=== PATIENT | male | born 1965 | race Caucasian/White ===

== ENCOUNTER → 2021-09-23 16:30 | Outpatient (CLI) | payer BC, SELFPAY ==
--- NOTE | ~2021-09-23 | XR_ITS ---
XR foot LT min 3V DATE: 09/23/2021 16:44 INDICATION: Left foot pain TECHNIQUE: 4 views COMPARISON: None FINDINGS: There is a recent intra-articular fracture of the base and metaphysis of the proximal phala nx of the second digit, with minimal displacement or angulation. No other fracture or dislocation, periosteal reaction or bone destruction is evident. Prominent plantar calcaneal enthesopathy. IMPRESSION: Intra-articular minimally displaced fracture of the base and metaphysis of the proximal p halanx of the second digit Plantar calcaneal enthesopathy Reviewed, dictated and finalized at location J. [facility] CARE MANAGER IMPRESSION: Intra-articular minimally displaced fracture of the base and metaph ysis of the proximal phalanx of the second digit Plantar calcaneal enthesopathy
== END ==
PROVIDERS: PCP Family Medicine; Visit Provider Family Medicine
DX: M77.32 Calcaneal spur, left foot (principal); S92.512A Displaced fracture of proximal phalanx of left lesser toe(s), initial encounter for closed fracture
CPT/HCPCS: 73630

== ENCOUNTER 2025-06-24 14:13 | Emergency (ER) | payer BC, SELFPAY ==
--- NOTE | ~2025-06-24 | CT_ITS ---
CT abdomen pelvis w con INDICATION:right flank pain, abd pain . COMPARISON: None. TECHNIQUE: Axial images of the abdomen and pelvis were obtained following infusion of 100 mL Isovue 300. Dose optimization technique was utilized. FINDINGS: The lung bases are clear. Fatty infiltration of the liver is noted. No intrahepatic mass or ductal dilatation is evident. The gallbladder is unremarkable. The pancreas and spleen are normal in appearance. The adrenal glands are symmetric in size. The kidneys demonstrate symmetric uptake and excretion of contrast. No cystic mass is evident. There is no solid mass. There is no hydronephrosis. Evaluation of the stomach and bowel loops are limited due to lack of oral contrast. The appendix is normal in appearance. Fat-containing left paramedian hernia. The bladder and rectum are normal. No free intraperitoneal fluid or air is evident. There is no significant retroperitoneal lymphadenopathy. The aorta, visceral vessels and renal arteries demonstrate normal caliber and patency. The lower thoracic and lumbar vertebrae are in normal alignment. IMPRESSION: No acute abnormality is noted in the abdomen and pelvis. Fat-containing left paramedian ventral wall hernia. All CT scans at this facility are performed using low dose modulation techniques as appropriate to perform exam including the following: automated exposure control; use of iterative reconstruction technique; adjustment of the mA and/or kV according to patient size (this includes techniques or standardized protocols for targeted exams where dose is matched to indication/reason for exam). Reviewed, dictated and finalized at location S. IMPRESSION: No acute abnormality is noted in the abdomen and pelvis. Fat-containing left paramedian ventral wall hernia. All CT scans at this facility are performed using low dose modulation techniqu es as appropriate to perform exam including the following: automated exposure c ontrol; use of iterative reconstruction technique; adjustment of the mA and/or kV according to patient size (this includes techniques or standardized protocol s for targeted exams where dose is matched to indication/reason for exam).
[2025-06-24 14:21] VITALS: BP 151/78; PULSE 82; RESP 20; TEMP 36.4; O2SAT 98
[2025-06-24 16:10] VITALS: BP 175/102; PULSE 72; RESP 18; O2SAT 98
[2025-06-24 17:03] LABS: Hematocrit 45.6 % (42.0-52.0); Hemoglobin 15.0 g/dL (14.0-18.0); Immature Granulocyte Percent A 0.7 % (0-0.5); Lymphocytes Absolute Auto 1.61 K/mm3 (0.9-3.2); Mean Corpuscular HGB Conc 32.9 g/dl (32-36); Mean Corpuscular Hemoglobin 29.2 pg (26-34); Mean Corpuscular Volume 88.9 fl (80-100); Nucleated Red Blood Cells Absolute Auto 0.000 K/mm3 (0.0-0.012); Nucleated Red Blood Cells Perc 0.0 % (0.0-0.2); Platelet Count Result 246 k/mm3 (150-375); Red Blood Count 5.13 M/mm3 (4.6-6.20); White Blood Count 5.3 K/mm3 (4.5-10.0)
[2025-06-24 17:05] LABS: Add Urine Microscopic? NO; Appearance Urine Clear (Clear); Glucose Urine UA 3+ mg/dL (Negative); Leukocyte Esterase Ur Negative LEU/UL (Negative); Nitrate Urine Negative (Negative); Specific Grav Ur 1.037 (1.001-1.035)
[2025-06-24 17:15] VITALS: BP 142/98; PULSE 77; RESP 18; O2SAT 98
[2025-06-24] MEDS: ONDANSETRON INJ 4 MG/2 ML VIAL IV PUSH (17:18)
[2025-06-24] MEDS: MORPHINE SULFATE (*CRX) 4 MG/ML INJ IV PUSH (17:18)
[2025-06-24 17:22] LABS: Alanine Aminotransferase 48 U/L (6-50); Albumin Level 4.0 g/dL (3.5-5.1); Alkaline Phosphatase 79 U/L (38-126); Anion Gap 11 mmol/L (4-12); Aspartate Amino Transferase 43 U/L (17-59); Bilirubin,Total 0.5 mg/dL (0.2-1.3); Blood Urea Nitrogen 15 mg/dL (9-20); Calcium 9.0 mg/dL (8.4-10.2); Carbon Dioxide 23 mmol/L (22-30); Chloride 99 mmol/L (98-107); Estimated CRCL calculation 138 ml/min; Estimated Glomerular Filt Rate > 60; Glucose 537 mg/dL (65-110); Lipase 67 U/L (23-300); Potassium 4.6 mmol/L (3.4-5.0); Sodium 133 mmol/L (137-145); Total Protein 7.2 g/dL (6.3-8.2)
--- NOTE | 2025-06-24 17:25 | ED_ITS ---
HPI - Abdominal Pain General Chief Complaint: Abdominal Pain Stated Complaint: flank pain Time Seen by Provider: 06/24/25 16:11 Source: patient Mode of arrival: ambulatory Limitations: no limitations History of Present Illness HPI narrative: This is a 60 year old male that presents to the ER for right sided flank/abdominal pain. Ongoing over the last couple of days. Reports urinary frequency. Denies fever, vomiting, dysuria, hematuria. Related Data Home Medications ?Medication ?Instructions ?Recorded ?Confirmed ?Last Taken ?Type cyanocobalamin (vitamin B-12) 1,000 mcg PO DAILY 06/1204/02/25 Unknown History 1,000 mcg tablet Allergies Allergy/AdvReac Type Severity Reaction Status Date / Time No Known Allergies Allergy Verified 06/14/22 09:02 Review of Systems 2 Review of Systems: All systems reviewed & are unremarkable except as noted in HPI and below PMFSH Past Medical History Medical History (Updated 06/24/25 @ 18:47 by Althea Car PA-C) Vitamin B12 deficiency (06/11/24) level low at 354 with goal greater than 400 with hemoglobin 15.0 on 06/11/2024. 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 fasting glucose 126 with hemoglobin A1c 6.7 on 01/11/2023. Fasting glucose 126 with hemoglobin A1c 6.5 with microalbumin ratio of 4 on 08/02/2023.Fasting glucose 178 with hemoglobin A1c 8.9 and GFR 101 on 06/11/2024. Glucose 163 with hemoglobin A1c 7.7 and GFR 96 on 09/24/2024. Colon cancer screening Abscess Encounter for prostate cancer screening PSA 0.45 on 05/06/2022. PSA 0.54 on 08/02/2023. PSA 0.4 on 06/11/2024. Vitamin D deficiency, unspecified Hypogonadism male total testosterone 102 with free testosterone 13.5 on 05/06/2022. Total testosterone 140 with free testosterone 19.3 on 08/02/2023. Elevated fasting glucose Family History Family History (Updated 06/23/22 @ 09:18 by ACE Luna) Grandparent Family history of transient ischemic attacks Diabetes mellitus, Onset Age: 83 Family history of cardiovascular disease Cerebrovascular accident, Onset Age: 78 Family history of malignant neoplasm Father Diabetes mellitus Mother Family history of osteoporosis Other High cholesterol Hypertension Social History Social History Smoking status: Current some day smoker Tobacco type: cigars Alcohol intake: current Drinks per week: 4 Substance use: never Substance use type: does not use Lack of Transportation: No Lack of Food: Never True Current Housing: I Have Housing Concerned About Future Housing: Decline to Answer Difficulty Paying Gas/Electric Bills: Decline to Answer Difficulty Paying for Meds: No Currently Unemployed: No Education: Associate Degree Difficulty w/ Childcare or Family Care: No 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 HEAD: Normocephalic, atraumatic. EYES: EOMI. CHEST: Clear to auscultation. No respiratory distress. No wheezes rales or rhonchi HEART: Regular rate and rhythm. No murmur heard. Normal peripheral pulses. ABDOMEN: Soft, nontender, nondistended, normal active bowel sounds. EXTREMITIES: Normal range of motion. No edema. SKIN: Warm, dry, no rash. NEURO: No focal deficits. Alert and oriented x3. PSYCH: Normal mood and affect Course Vital Signs Vital signs: Vital Signs Temperature 97.5 F L 06/24/25 14: Pulse Rate 82 06/24/25 14:21 Respiratory Rate 20 06/24/25 14:21 Blood Pressure 151/78 H 06/24/25 14:21 Pulse Oximetry 98 06/24/25 14:21 Temperature 97.5 F L 06/24/25 14:21 Pulse Rate 77 06/24/25 17:15 Respiratory Rate 18 06/24/25 17:15 Blood Pressure 142/98 H 06/24/25 17:15 Pulse Oximetry 98 06/24/25 17:15 MDM - Abdominal Pain MDM Narrative Medical decision making narrative: Patient presents the emergency department for right flank pain, lower abdominal pain. He is afebrile and nontoxic appearing. His vitals are stable. Cbc without leukocytosis. Metabolic panel with normal kidney function. Blood sugars elevated in the 500s, this down trended with IV fluids. No anion gap, bicarb is normal. Urine without evidence of infection. CT abdomen pelvis without acute findings. Patient updated on his workup and agrees with plan of care. He is to follow up with primary provider. He was given warnings to return to the ER Differential Diagnosis Differential diagnosis: Likely acute appendicitis, calculus of kidney, diverticulitis and other (muscle strain, lumbar radiculopathy) Lab Data Attestation: I reviewed the patient's lab results. 06/24/25 16:47 06/24/25 16:48 Labs: Lab Results 06/24/25 06/24/25 Range/Units 16:47 16:48 WBC 5.3 (4.5-10.0) K/mm3 RBC 5.13 (4.6-6.20) M/mm3 Hgb 15.0 (14.0-18.0) g/dL Hct 45.6 (42.0-52.0) % MCV 88.9 (80-100) fl MCH 29.2 (26-34) pg MCHC 32.9 (32-36) g/dl RDW 12.6 (11.5-14.5) % Plt Count 246 (150-375) k/mm3 MPV 10.0 (7.4-10.4) fl Immature Gran % (Auto) 0.7 H (0-0.5) % Neut % (Auto) 54.9 (45.5-73.1) % Lymph % (Auto) 30.1 (18.3-44.2) % Stearns % (Auto) 7.9 (2.6-8.5) % Eos % (Auto) 4.9 H (0-4.4) % Baso % (Auto) 1.5 H (0.2-1.2) % Lymph # (Auto) 1.61 (0.9-3.2) K/mm3 Stearns # (Auto) 0.4 (0.1-0.6) K/mm3 Eos # (Auto) 0.3 (0-0.3) K/mm3 Baso # (Auto) 0.1 (0.0-0.1) K/mm3 Abs Immat Gran (auto) 0.04 H (0.00-0.031) K/mm3 Absolute Neuts (auto) 2.9 (1.3-6.7) K/mm3 Absolute Nucleated RBC 0.000 (0.0-0.012) K/mm3 Nucleated RBC % 0.0 (0.0-0.2) % Sodium 133 L (137-145) mmol/L Potassium 4.6 (3.4-5.0) mmol/L Chloride 99 (98-107) mmol/L Carbon Dioxide 23 (22-30) mmol/L Anion Gap 11 (4-12) mmol/L BUN 15 (9-20) mg/dL Creatinine 0.77 (0.7-1.3) mg/dL Estim Creat Clear Calc 138 ml/min Estimated GFR > 60 (59 - ) Glucose 537 H* (65-110) mg/dL Calcium 9.0 (8.4-10.2) mg/dL Total Bilirubin 0.5 (0.2-1.3) mg/dL AST 43 (17-59) U/L ALT 48 (6-50) U/L Alkaline Phosphatase 79 (38-126) U/L Total Protein 7.2 (6.3-8.2) g/dL Albumin 4.0 (3.5-5.1) g/dL Lipase 67 (23-300) U/L Urine Color Yellow (Yellow) Urine Appearance Clear (Clear) Urine pH 5.5 (5.0-9.0) Ur Specific Beryl 1.037 H (1.001-1.035) Urine Protein Negative (Negative) mg/dL Urine Glucose (UA) 3+ H (Negative) mg/dL Urine Ketones 1+ H (Negative) mg/dL Ur Blood (Man) Negative (Negative) Urine Nitrate Negative (Negative) Urine Bilirubin Negative (Negative) Urine Urobilinogen 0.2 (<2.0) mg/dL Leukocyte Esterase Rfl Negative (Negative) TAWANDA/UL Imaging Data Radiologist's impression: ITS Impressions Abdomen/Pelvis CT 06/24/25 18:12 IMPRESSION: No acute abnormality is noted in the abdomen and pelvis. Fat-containing left paramedian ventral wall hernia. All CT scans at this facility are performed using low dose modulation techniques as appropriate to perform exam including the following: automated exposure control; use of iterative reconstruction technique; adjustment of the mA and/or kV according to patient size (this includes techniques or standardized protocols for targeted exams where dose is matched to indication/reason for exam). Critical Care Time Critical Care Time Critical Care Time: No Discharge Plan Discharge Clinical Impression: Hyperglycemia Back pain Qualifiers: Back pain location: low back pain Chronicity: acute Back pain laterality: right Sciatica presence: without sciatica Qualified Code(s): M54.50 - Low back pain, unspecified Patient Disposition: Home Condition: Stable Instructions: Acute Low Back Pain (ED), Abdominal Pain (ED), Type 2 Diabetes Management for Adults (ED) Additional Instructions: Return to the ER if you experience fever, abdominal pain with nausea and vomiting, you are unable to keep down liquids or solids, pain or burning with urination, blood in the urine, bowel/bladder incontinence, numbness in your groin, or any other symptoms that are concerning to you Over the counter pain medication as needed. Muscle relaxer as needed for pain. Lidocaine patch to the area of pain Follow up with your primary care doctor for further management. Your blood sugar was quite elevated today you may need other agents for better control of your diabetes Patient Language: Eritrean Prescriptions: New lidocaine 5 % adhesive patch,medicated 1 patch topical DAILY PRN (Reason: pain) Qty: 15 0RF Rx Instructions: leave on most painful area for up to 12 hrs cyclobenzaprine 10 mg tablet 10 mg PO TID PRN (Reason: muscle spasm) Qty: 14 0RF No Action atorvastatin 20 mg tablet 20 mg PO DAILY Qty: 90 3RF quinapril 40 mg tablet 40 mg PO DAILY Qty: 90 3RF hydrochlorothiazide 25 mg tablet 25 mg PO DAILY Qty: 90 3RF (DME) lancets [BD Ultra-Fine II Lancets] 30 gauge misc See Rx Instructions .Route Qty: 100 3RF Rx Instructions: Use to check blood sugar once daily (DME) OneTouch Verio test strips Strip See Rx Instructions .Route Qty: 100 3RF Rx Instructions: Use to check blood sugar once daily (DME) blood-glucose meter [OneTouch Verio Meter] Misc See Rx Instructions .Route Qty: 1 0RF Rx Instructions: Use to test blood sugar once daily pen needle, diabetic [BD Ultra-Fine Micro Pen Needle] 32 gauge x 1/4 needle 1 ea miscellaneous . weekly Qty: 12 3RF Rx Instructions: use weekly with Ozempic cyanocobalamin (vitamin B-12) 1,000 mcg tablet 1,000 mcg PO DAILY metformin 500 mg tablet extended release 24 hr 1,000 mg PO BID Qty: 360 3RF amlodipine 5 mg tablet 5 mg PO DAILY Qty: 90 3RF Follow-up/Referrals: Rene Hernández MD [Primary Care Provider, Family Practice]
[2025-06-24] MEDS: SODIUM CHLORIDE 0.9% IV 1,000 ML 999 ML IV CONT (17:30)
[2025-06-24 18:00] VITALS: BP 154/99; PULSE 74; RESP 18; O2SAT 97
[2025-06-24 19:00] VITALS: BP 155/92; PULSE 72; RESP 18; TEMP 36.5; O2SAT 97
== END 2025-06-24 19:10 | disposition home or self-care (01) ==
PROVIDERS: Emergency Provider Physician Assistant; PCP Family Medicine
DX: M54.50 Low back pain, unspecified (principal); E11.65 Type 2 diabetes mellitus with hyperglycemia; E53.8 Deficiency of other specified B group vitamins; E66.01 Morbid (severe) obesity due to excess calories; Z68.41 Body mass index [BMI] 40.0-44.9, adult; E55.9 Vitamin D deficiency, unspecified; G47.33 Obstructive sleep apnea (adult) (pediatric); M19.072 Primary osteoarthritis, left ankle and foot; F17.290 Nicotine dependence, other tobacco product, uncomplicated; Z79.84 Long term (current) use of oral hypoglycemic drugs; Z79.899 Other long term (current) drug therapy
CPT/HCPCS: 36415; 74177; 80053; 81003; 82948; 83690; 85025; 96361; 96374; 96375; 99284; J2270; J2405; J7030; Q9967